=== PATIENT | female | born 1960 | race Caucasian/White ===

== ENCOUNTER 2016-05-11 06:16 | Inpatient (IN) ==
[2016-05-11] MEDS ORDERED: Lidocaine -MPF 4% 5 ML AMPUL ONE (06:54)
[2016-05-11] MEDS ORDERED: Ondansetron 4 MG/2 ML VIAL ONE (06:59)
[2016-05-11] MEDS ORDERED: *HR* Succinylcholine 200 MG/10 ML VIAL IVP ONE (06:59)
[2016-05-11] MEDS ORDERED: Dexamethasone 4 MG/ML VIAL ONE (06:59)
[2016-05-11] MEDS ORDERED: Lidocaine -MPF 2% 2 ML VIAL ONE (06:59)
[2016-05-11] MEDS ORDERED: *HR* Midazolam HCl 2 MG/2 ML VIAL ONE (07:00)
[2016-05-11] MEDS ORDERED: *HR* FentaNYL (PF) 100 MCG/2 ML VIAL ONE (07:00)
[2016-05-11] MEDS ORDERED: *HR* Propofol 200 MG/20 ML VIAL IVP ONE (07:00)
[2016-05-11] MEDS ORDERED: *HR* Phenylephrine 10 MG/ML VIAL ONE (07:03)
[2016-05-11] MEDS ORDERED: Albuterol 2.5 MG/3 ML NEBULIZER IH ONE (07:04)
[2016-05-11] MEDS ORDERED: Clindamycin 900 MG/50 ML 900 MG/50 ML IV.SOLN IVPB ONE (07:04)
[2016-05-11] MEDS ORDERED: Lidocaine 1% 20 ML MDV ID ONE (07:04)
[2016-05-11] MEDS ORDERED: Albuterol 2.5 MG/3 ML NEBULIZER ONE (07:09)
[2016-05-11] MEDS ORDERED: Ringers Solution, Lactated 1,000 ML IVC SCH ×2 (07:15→11:55)
--- NOTE | 2016-05-11 07:20 | History & Physical Report ---
Date of Encounter: 05/11/16 Time of Encounter: 07:19 24 Hour HP Update - Instructions Instructions: If the History and Physical is less than 30 days old and was completed prior to A.M. admission and or procedure and has NOT been updated on calendar day of procedure please complete this update prior to performing procedure. - Update Patient reports changes in Medical Condition: No Changes in assessment/condition: No Changes in Medication: No Preop tests/diagnostics Reviewed: Yes Pre-Op MRSA Screen: Negative Surgery Remains Indicated: Yes Consent for Planned Operative Procedure(s) Verified: Yes - Pre-Operative Checklist Preoperative Checklist Indicated: No Prophylactic Antibiotic Ordered: Yes Home Medications Include Beta Jerrod: No Beta Jerrod Taken Today (Day of Surgery): No Beta Jerrod Taken Yesterday (Day Prior to Surgery): No Is VTE Prophylaxis Indicated?: Yes
--- NOTE | 2016-05-11 07:24 | Anesthesia Evaluation PreOp ---
Date of Encounter: 05/11/16 Time of Encounter: 07:22 - Past History Planned Operation: Posterior Lumbar Interbody Fusion L4-5 Cardiac History: Hyperlipidemia, Arrhythmia Pulmonary History: Smoker (38 years), Asthma (O2 prn), COPD MEAT PUMPER History: Denies Any Significant HX Other Medical History: GERD, Other (bipolar d/o) Anesthesia History: No Prior Anesthetic Complications, Past Anesthesia Alcohol Use: none Drug use: none Medications and Allergies Albuterol Sulfate [Proair HFA] 180 mcg IH Q4HR 01/23/15 [History] Aspirin 81 mg PO DAILY 01/23/15 [History] Atorvastatin [Lipitor] 40 mg PO HS 01/23/15 [History] Budesonide/Formoterol 160/4.5 [Symbicort] 1 puff IH BID 01/23/15 [History] Calcium Carbonate/Vitamin D3 [Calcium 600 + D Tablet] 1 each PO BID 01/23/15 [ History] CarBAMazepine [Tegretol] 200 mg PO BID 01/23/15 [History] Cholecalciferol (Vitamin D3) [Vitamin D] 1,000 unit PO BID 01/23/15 [History] ClonazePAM [Klonopin] 1 mg PO BID 01/23/15 [History] Escitalopram [Lexapro] 20 mg PO DAILY 01/23/15 [History] Gabapentin [Neurontin] 600 mg PO BID 01/23/15 [History] Glucosamine Sulf/Chondroitin A [Glucosamine-Chondroitin Cap] 1 each PO BID 01/23 [History] Ipratropium/Albuterol Neb [Duoneb] 3 ml IH Q4HR PRN 01/23/15 [History] Lamotrigine [Lamictal] 150 mg PO BID 01/23/15 [History] Loratadine [Claritin] 10 mg PO DAILY 01/23/15 [History] Loxapine Succinate [Loxapine] 10 mg PO BID 01/23/15 [History] [place]-3S/Dha/Epa/Fish Oil [Fish Oil 1,200 mg Softgel] 1 each PO BID 01/23/15 [ History] Omeprazole [Prilosec] 40 mg PO DAILY 01/23/15 [History] Oxygen 2 l NS AD 01/23/15 [History] TraZODone 150 mg PO HS 01/23/15 [History] Allergies adhesive tape Adverse Reaction (Unverified 12/28/14 14:43) Hives cefazolin [From Anc] Adverse Reaction (Unverified 12/28/14 14:43) Hives NSAIDS (Non-Steroidal Anti-Inflamma Adverse Reaction (Unverified 12/28/14 14:43) Irritable Penicillins Adverse Reaction (Unverified 12/28/14 14:43) Hives - Meds/Allergy Pre-op Review Medications Reviewed: Yes Allergies Reviewed: Yes Beta Blockers on Current Med List: Yes If Beta Blockers taken, Date/Time (Last Dose taken): 05/11/2016 at 0430 Anesthesia Results - Labs Laboratory Tests 04/30/16 04/30/16 04/30/16 10:03 10:03 10:03 WBC 11.7 H Hgb 15.4 Hct 44.2 Plt Count 252 PT 12.5 H INR 1.2 APTT 34.6 Sodium 134 L Potassium 3.3 L BUN 4 L Creatinine 0.59 - Imaging EKG: report reviewed (04/30/2016 SR, borderline LAD) Additional studies: 09/14/2014 Stress Impression: Perfusion imaging was negative for ischemia or infarct. Pharmacologic ECG was negative for ischemia at the level of heart rate achieved. Patient had no chest pain with stress. Normal hemodynamic response. No arrhythmias noted with stress. Gated EF = >70%. The LV is not dilated. There is no evidence of TID. 06/05/2014 Echo Impressions: LVEF 60%. Normal left ventricular size and systolic function. There is evidence of mild diastolic dysfunction of the left ventricle. Normal left atrial size. Normal right atrial size. Normal right ventricular size and function. Mild mitral regurgitation. Estimated RVSP was 25 mmHg. No pulmonary hypertension. The IVC is not dilated. Anesthesia Exam Vital Signs/O2 Sat, Most Current Temp Pulse Resp BP Pulse Ox 98.8 F 67 18 130/73 96 05/11/16 07:06 05/11/16 07:06 05/11/16 07:06 05/11/16 07:06 05/11/16 07:06 Height: 5'1''/1.55 m Weight: 118 lbs/53.524 kg NPO (# of Hours): 8 Pain Scale: 0 Pain Scale Used: Numeric (1 - 10) - HEENT Pupil (Motor): EOMI Mallampati: II Teeth: Edentulous Denture Type: Upper: Complete, Lower: Complete Oral Opening: Greater than 3 - MEAT PUMPER LOC: Oriented MEAT PUMPER Motor: Normal RUE, Normal LUE, Normal RLE, Normal Face, Deficit LLE MEAT PUMPER Sensory: Normal: RUE, LUE, RLE, Face, Deficit: LLE - Cardiac Rhythm: Regular Murmur: None - Pulmonary Breath Sounds: bilateral Clear Respiratory Effort: Symmetrical Anesthesia Assess/Plan ASA Score: 3 Modified [place] Scale for Level of Consciousness: Cooperative, oriented, and tranquil Anesthetic Plan: General Monitoring Plan: Standard Monitors Recovery Plan: PACU
[2016-05-11] MEDS ORDERED: *HR* Remifentanil 1 MG VIAL IVP ONE (07:38)
[2016-05-11] MEDS ORDERED: EPHEDrine 50 MG/ML VIAL ONE (08:02)
[2016-05-11] MEDS ORDERED: Lacri-Lube 3.5 GM TUBE ONE (08:05)
[2016-05-11] MEDS ORDERED: Ondansetron 4 MG/2 ML VIAL IVP ONE (08:47)
[2016-05-11] MEDS ORDERED: *HR* Promethazine 25 MG/ML VIAL IVP PRN (08:47)
[2016-05-11] MEDS ORDERED: Dexamethasone 4 MG/ML VIAL IVP ONE (08:47)
[2016-05-11] MEDS ORDERED: *HR* Labetalol 100 MG/20 ML MDV IVP PRN (08:47)
--- NOTE | 2016-05-11 10:26 | Orthopedic Operative Note ---
Date of procedure: 05/11/16 Pre-op diagnosis: lumbar radiculopathy, lumbar disc heniation, s/p microdiscectomy Post-op diagnosis: same Operation/Findings: Posterior lumbar interbody fusion L4-L5: The patient successfully underwent general endotracheal anesthesia. The patient was given antibiotics prior to the start of the procedure. Compression boots and stockings were used for deep vein thrombosis prophylaxis. A Elliott catheter was placed. Leads for neuro monitoring were placed on the upper and lower extremities. This included the cranium. The neuro monitoring personnel confirmed there were satisfactory readings prior to the start of the procedure. The patient was turned prone on the Marcell table. The back was prepped and draped in the usual sterile fashion. An incision was was marked and centered over the involved L4-L5 levels in the mid line. The incision was deepened through the lumbar fascia. Bovie cautery and Ayala elevators were used to reflect the paraspinal musculature at the lateral extent of the L4 and L5 transverse processes of the involved levels. Vivi clamps were placed over the spinous processes. An intraoperative lateral fluoroscopy graft was obtained. A conversation was held between the surgeon and radiologist and both confirmed we had the correct operative levels. We then placed pedicle screws in standard fashion with the aid of fluoroscopy and anatomic landmarks. Briefly a starter awl was used. A gearshift was subsequently used to enter the instructor pilot hole via a transpedicular route into the vertebral body. The instructor pilot hole was tapped with an undersized instrument, and subsequently four 6.5 x 40 mm pedicle screws were placed bilaterally at the indicated L4 and L5 levels. The screws were tested with the aid of the neurologic monitoring staff via pedicle screw stimulation. All reading suggested there was no significant cortical wall breech. The screws were also evaluated fluoro- graphically and appeared to be in satisfactory position. We then turned our attention to the decompression portion of the procedure. We removed the supraspinous and interspinous ligaments and subsequently the insertion of the ligamentum flavum on the undersurface of the proximal L4 lamina was dislodged with a curette. We then removed the ligamentum flavum as well as undercut the L4-5 facets at this level to decompress the lateral recesses. We also performed a L4 laminectomy. After the decompression, which was over and above that which was required to place the interbody graft, the foramen and traversing roots at this L4-L5 level were found to be free and patent. We also took part of the left medial facet in order to aid in the decompression. We then protected the neural elements including the thecal sac and traversing nerve root on the left with a dural retractor. We made an annulotomy into the L4-L5 disc space and then removed entire disc material using Pituitary instruments. We trialed various size grafts after the endplates were prepared for graft insertion. A 10 x 26 enter body graft fit well within the L4-L5 disc space. We obtained some bone from the left posterior superior iliac spine through us a separate incision and combined with this with the bone which we had saved from the laminectomy portion of the procedure. This autograft bone was first placed in the anterior portion of the L4-L5 disc space and additional bone was placed within the interbody graft spacer. We then placed the interbody graft spacer obliquely across the disc space towards the midline while protecting the neural elements with a root retractor. When the graft was found to be in satisfactory position the copier repair technician was removed. We then copiously irrigated the wound. We then decorticated the L4 and L5 transverse processes as well as the L4-L5 facet joints of the involved levels to aid in the posterolateral fusion. We placed autograft bone in the lateral gutters over these regions. We then placed rods within the screw heads of the involved levels and first locked the distal screws and then subsequently locked the proximal screws. We then closed the wound in layers with 1 Vicryl for the fascia, 2-0 Vicryl. Subcutaneous tissue, and Dermabond was used for skin closure. Sterile dressings were placed over the wound. The patient was turned supine on a hospital bed and extubated. All sponge instruments and needle counts were correct at the end of the procedure. The patient tolerated the procedure well without complications. Anesthesia: GETA Surgeon: Oumar Oliveros Jr Estimated blood loss (cc): 100 Condition: stable Disposition: PACU
[2016-05-11] MEDS: *HR* HYDROmorphone (PF) 1 MG/ML SYRINGE IVP PRN ×4 (10:50→11:12)
[2016-05-11] MEDS ORDERED: NON-FORMULARY MEDICATION 1 EACH EACH (Oxygen [Oxygen] 2 L) NS SCH (11:55)
[2016-05-11] MEDS ORDERED: *HR* Morphine 2 MG/ML SYRINGE IVP PRN (11:55)
[2016-05-11] MEDS ORDERED: Naloxone 0.4 MG/ML INJ IVP PRN (11:55)
[2016-05-11] MEDS ORDERED: Ondansetron 4 MG/2 ML VIAL IVP PRN (11:55)
[2016-05-11] MEDS ORDERED: Ipratropium/Albuterol Neb 3 ML IH PRN (11:55)
[2016-05-11] MEDS ORDERED: Sennosides 8.6 MG TABLET PO PRN (11:55)
[2016-05-11] MEDS: *HR* Morphine 2 MG/ML SYRINGE IVP PRN (15:58)
[2016-05-11] MEDS: Simethicone 80 MG TAB.CHEW PO SCH ×3 (15:58→20:44)
[2016-05-11] MEDS: traZODone 50 MG TABLET PO SCH (20:43)
[2016-05-11] MEDS: *HR* OxyCODONE Immed Rel 5 MG TABLET PO PRN (20:44)
[2016-05-11] MEDS: carBAMazepine 200 MG TABLET PO SCH (20:45)
[2016-05-11] MEDS: tiZANidine 4 MG TABLET PO SCH (20:45)
[2016-05-11] MEDS: lamoTRIgine 100 MG TABLET PO SCH (20:45)
[2016-05-11] MEDS: clonazePAM 1 MG TABLET PO SCH (20:45)
[2016-05-11] MEDS: Clindamycin 600 MG/50 ML 600 MG/50 ML IV.SOLN IVPB SCH (20:46)
[2016-05-11] MEDS: (Loxapine Succinate [Loxapine] 10 MG) PO SCH (20:47)
[2016-05-11] MEDS: GLUCOSAMINE SULF PO SCH (20:47)
[2016-05-11] MEDS: CHONDROITIN A PO SCH (20:47)
[2016-05-11] MEDS: Budesonide/Formoterol 160/4.5 MDI IH SCH (21:30)
[2016-05-12] MEDS: *HR* Morphine 2 MG/ML SYRINGE IVP PRN (00:20)
[2016-05-12] MEDS: *HR* OxyCODONE Immed Rel 5 MG TABLET PO PRN ×3 (02:53→15:56)
[2016-05-12] MEDS: Clindamycin 600 MG/50 ML 600 MG/50 ML IV.SOLN IVPB SCH (04:10)
[2016-05-12 06:34] LABS: BUN/Creatinine Ratio 6 (6-26); Blood Urea Nitrogen 3 mg/dL (7-20); Calcium 8.8 mg/dL (8.6-10.8); Carbon Dioxide 26 mEq/L (19-29); Chloride 100 mEq/L (98-109); Glucose 101 mg/dL (70-99); Osmolality,Calculated 279 (280-300); Potassium 3.3 mEq/L (3.5-4.5); Sodium 136 mEq/L (136-145); eGFR For African Americans > 60 (> 60); eGFR For Non-African Americans > 60 (> 60)
[2016-05-12] MEDS: Budesonide/Formoterol 160/4.5 MDI IH SCH ×2 (08:18→20:17)
[2016-05-12] MEDS: Cholecalciferol (D-3) 1,000 UNIT TABLET PO SCH (09:35)
[2016-05-12] MEDS: Simethicone 80 MG TAB.CHEW PO SCH ×4 (09:35→20:31)
[2016-05-12] MEDS: Aspirin 81 MG TAB.CHEW PO SCH (09:35)
[2016-05-12] MEDS: clonazePAM 1 MG TABLET PO SCH ×2 (09:36→20:31)
[2016-05-12] MEDS: carBAMazepine 200 MG TABLET PO SCH ×2 (09:36→20:37)
[2016-05-12] MEDS: Loratadine 10 MG TABLET PO SCH (09:36)
[2016-05-12] MEDS: lamoTRIgine 100 MG TABLET PO SCH ×2 (09:36→20:38)
[2016-05-12] MEDS: CHONDROITIN A PO SCH ×2 (09:38→20:51)
[2016-05-12] MEDS: GLUCOSAMINE SULF PO SCH ×2 (09:38→20:51)
--- NOTE | 2016-05-12 11:10 | Spine Progress Note ---
Date of Encounter: 05/12/16 Time of Encounter: 11:07 Subjective Principal diagnosis: recuurent disc herniation, lumbar radiculopathy, s/p microdiscectomy Interval history: The patient is without complaints. AFVSS. Dressing clean, dry, and intact. Neurovascularly intact with regard to her bilateral lower extremities. Impression; stable. Mobilize, discharge planning, continue analgesics. Objective Vital signs: Vital Signs Temp Pulse Resp BP Pulse Ox 05/12/16 09:27 95/50 05/12/16 08:19 18 97 05/12/16 06:44 98.9 F 81 18 88/49 97 05/12/16 03:56 98.0 F 74 16 109/51 96 05/11/16 23:39 98.3 F 75 15 108/55 95 05/11/16 21:30 18 94 L 05/11/16 19:30 98.7 F 76 16 104/56 94 L 05/11/16 15:00 97.9 F 79 18 114/64 93 L 05/11/16 13:56 97.9 F 84 16 100/53 93 L 05/11/16 13:45 97.9 F 84 16 100/53 93 L 05/11/16 13:00 97.7 F 84 16 112/57 94 L 05/11/16 12:15 98.6 F 86 16 111/58 95 05/11/16 11:45 98.6 F 82 16 128/74 94 L 05/11/16 11:31 98.4 F 81 20 140/69 96 05/11/16 11:21 98.2 F 80 20 133/70 95 05/11/16 11:11 79 20 137/72 95 Intake and Output 05/11/16 05/12/16 05/12/16 23:59 07:59 15:59 Intake Total 240 / 240 700 / 700 Output Total 800 / 800 1500 / 1500 Balance -560 / -560 -800 / -800 Intake: IV Fluids 100 / 100 Cleocin 600 MG/50 ML 600 100 / 100 mg In 50 ml @ 50 mls/hr IVPB Q8H [facility] Rx#: [id number] Oral 240 / 240 600 / 600 Output: Catheter 800 / 800 1500 / 1500 - Labs CBC & BMP: 05/12/16 05:49 Labs: Abnormal lab results Potassium 3.3 mEq/L (3.5-4.5) L 05/12/16 05:49 BUN 3 mg/dL (7-20) L 05/12/16 05:49 Creatinine 0.47 mg/dL (0.57-1.11) L 05/12/16 05:49 Glucose 101 mg/dL (70-99) H 05/12/16 05:49 Calculated Osmolality 279 (280-300) L 05/12/16 05:49 Consult Discharge Plan - Plan Referrals: Julius Grossman DO [Partnered Physician] - 06/18/16 11:40 am Harper Hendrickson CNP [Primary Care Provider] -
[2016-05-12] MEDS: traZODone 50 MG TABLET PO SCH (20:40)
[2016-05-12] MEDS: tiZANidine 4 MG TABLET PO SCH (20:40)
[2016-05-12] MEDS: (Loxapine Succinate [Loxapine] 10 MG) PO SCH (20:51)
[2016-05-13] MEDS: Budesonide/Formoterol 160/4.5 MDI IH SCH ×2 (07:35→20:43)
[2016-05-13] MEDS: Aspirin 81 MG TAB.CHEW PO SCH (08:00)
[2016-05-13] MEDS: lamoTRIgine 100 MG TABLET PO SCH ×2 (08:00→22:42)
[2016-05-13] MEDS: clonazePAM 1 MG TABLET PO SCH ×2 (08:00→22:42)
[2016-05-13] MEDS: Cholecalciferol (D-3) 1,000 UNIT TABLET PO SCH (08:01)
[2016-05-13] MEDS: *HR* OxyCODONE Immed Rel 5 MG TABLET PO PRN ×2 (08:01→22:52)
[2016-05-13] MEDS: carBAMazepine 200 MG TABLET PO SCH ×2 (08:01→22:43)
[2016-05-13] MEDS: Loratadine 10 MG TABLET PO SCH (08:04)
[2016-05-13] MEDS: Simethicone 80 MG TAB.CHEW PO SCH ×4 (08:04→22:42)
[2016-05-13] MEDS: CHONDROITIN A PO SCH ×2 (08:04→22:37)
[2016-05-13] MEDS: GLUCOSAMINE SULF PO SCH ×2 (08:04→22:37)
--- NOTE | 2016-05-13 13:25 | Spine Progress Note ---
Date of Encounter: 05/13/16 Time of Encounter: 13:24 Subjective Principal diagnosis: recuurent disc herniation, lumbar radiculopathy, s/p microdiscectomy Interval history: The patient is without complaints. AFVSS. Incision is clean, dry, and intact. Neurovascularly intact with regard to her bilateral lower extremities. Impression; stable. Mobilize, discharge planning, continue analgesics. Objective Vital signs: Vital Signs Temp Pulse Resp BP Pulse Ox 05/13/16 12:30 80 77/46 90 L 05/13/16 10:49 99.5 F 74 16 89/51 95 05/13/16 08:00 98.8 F 90 20 88/40 05/13/16 07:38 16 87 L 05/13/16 06:48 101.3 F H 79 16 100/58 93 L 05/13/16 04:11 99.7 F H 82 14 95/48 92 L 05/13/16 00:56 99.8 F H 80 16 97/51 93 L 05/12/16 23:19 92/48 05/12/16 21:24 100.1 F H 86 17 103/58 92 L 05/12/16 21:09 112/53 05/12/16 20:17 14 96 05/12/16 15:37 99.6 F 81 16 101/63 95 Intake and Output 05/12/16 05/13/16 05/13/16 23:59 07:59 15:59 Output Total 600 / 600 1000 / 1000 Balance -600 / -600 -1000 / -1000 Output: Urine 600 / 600 1000 / 1000 - Labs CBC & BMP: 05/12/16 05:49 Labs: Abnormal lab results Potassium 3.3 mEq/L (3.5-4.5) L 05/12/16 05:49 BUN 3 mg/dL (7-20) L 05/12/16 05:49 Creatinine 0.47 mg/dL (0.57-1.11) L 05/12/16 05:49 Glucose 101 mg/dL (70-99) H 05/12/16 05:49 Calculated Osmolality 279 (280-300) L 05/12/16 05:49 Consult Discharge Plan - Plan Referrals: Laure Abrams, PAC [Physician Funeral Home Director] - 05/26/16 8:00 am Julius Grossman, DO [Partnered Physician] - 06/18/16 11:40 am aHrper Hendrickson CNP [Primary Care Provider] -
[2016-05-13] MEDS: (Loxapine Succinate [Loxapine] 10 MG) PO SCH (22:37)
[2016-05-13] MEDS: traZODone 50 MG TABLET PO SCH (22:42)
[2016-05-13] MEDS: tiZANidine 4 MG TABLET PO SCH (22:42)
[2016-05-14] MEDS: Budesonide/Formoterol 160/4.5 MDI IH SCH (08:32)
[2016-05-14] MEDS: GLUCOSAMINE SULF PO SCH (09:02)
[2016-05-14] MEDS: CHONDROITIN A PO SCH (09:02)
[2016-05-14] MEDS: Simethicone 80 MG TAB.CHEW PO SCH ×2 (09:02→13:53)
[2016-05-14] MEDS: Loratadine 10 MG TABLET PO SCH (09:02)
[2016-05-14] MEDS: Cholecalciferol (D-3) 1,000 UNIT TABLET PO SCH (09:03)
[2016-05-14] MEDS: Aspirin 81 MG TAB.CHEW PO SCH (09:08)
[2016-05-14] MEDS: lamoTRIgine 100 MG TABLET PO SCH (09:08)
[2016-05-14] MEDS: carBAMazepine 200 MG TABLET PO SCH (09:09)
[2016-05-14] MEDS: clonazePAM 1 MG TABLET PO SCH (09:09)
[2016-05-14 10:55] VITALS: BP 96/63
--- NOTE | 2016-05-14 11:53 | Discharge Summary ---
Date of Encounter: 05/14/16 Time of Encounter: 11:49 - Discharge Diagnosis (1) Recurrent herniation of lumbar disc Priority: Primary Status: Chronic (2) Lumbar radiculopathy Priority: Secondary Status: Chronic (3) Lumbar stenosis Priority: Secondary Status: Chronic (4) History of microdiscectomy Priority: Secondary Status: Chronic - Discharge Medications Prescriptions: OxyCODONE Immed Rel [Roxicodone 5 MG] 5 mg PO Q6HR PRN #60 tablet PRN Reason: Severe Pain Home Medications: Albuterol Sulfate [Albuterol Inhaler] 2 puff IH Q4HR PRN 01/23/15 [History] Aspirin 81 mg PO DAILY 01/23/15 [History] Atorvastatin [Lipitor] 40 mg PO HS 01/23/15 [History] Budesonide/Formoterol 160/4.5 [Symbicort] 1 puff IH BID 01/23/15 [History] Calcium Carbonate/Vitamin D3 [Calcium 600 + D Tablet] 1 each PO BID 01/23/15 [ History] CarBAMazepine [Tegretol] 200 mg PO BID 01/23/15 [History] Cholecalciferol (Vitamin D3) [Vitamin D] 1,000 unit PO BID 01/23/15 [History] ClonazePAM [Klonopin] 1 mg PO BID 01/23/15 [History] Escitalopram [Lexapro] 30 mg PO HS 01/23/15 [History] Gabapentin [Neurontin] 600 mg PO TID 01/23/15 [History] Glucosamine Sulf/Chondroitin A [Glucosamine-Chondroitin Cap] 1 each PO BID 01/23 [History] Ipratropium/Albuterol Neb [Duoneb] 3 ml IH Q4HR PRN 01/23/15 [History] Lamotrigine [Lamictal] 150 mg PO BID 01/23/15 [History] Loratadine [Claritin] 10 mg PO DAILY 01/23/15 [History] Loxapine Succinate [Loxapine] 10 mg PO HS 01/23/15 [History] [place]-3S/Dha/Epa/Fish Oil [Fish Oil 1,200 mg Softgel] 1 each PO BID 01/23/15 [ History] Omeprazole [PriLOSEC] 40 mg PO DAILY 01/23/15 [History] Oxygen 2 l NS AD 01/23/15 [History] Acetaminophen [Tylenol] 1,000 mg PO Q6HR PRN 05/11/16 [History] Atenolol [Tenormin] 25 mg PO DAILY 05/11/16 [History] Dicyclomine [Bentyl] 10 mg PO QID PRN 05/11/16 [History] Montelukast [Singulair] 10 mg PO DAILY 05/11/16 [History] Simethicone [Gas Relief] 125 mg PO QID 05/11/16 [History] Tizanidine HCl 4 mg PO HS 05/11/16 [History] Tramadol HCl [Ultram] 50 mg PO Q6H PRN 05/11/16 [History] Trazodone HCl 200 mg PO HS 05/11/16 [History] OxyCODONE Immed Rel [Roxicodone 5 MG] 5 mg PO Q6HR PRN #60 tablet 05/14/16 [Rx] Allergies/Adverse Reactions: Allergies adhesive tape Adverse Reaction (Verified 05/11/16 07:59) Hives cefazolin [From Anc] Adverse Reaction (Verified 05/11/16 07:59) Hives NSAIDS (Non-Steroidal Anti-Inflamma Adverse Reaction (Verified 05/11/16 07:59) Irritable Penicillins Adverse Reaction (Verified 05/11/16 07:59) Hives - Impressions ITS Impressions Lumbar Spine X-Ray 05/11/16 08:22 IMPRESSION: Status post posterior screw and monik fusion at L4-5. No acute or unexpected finding. D/ / 05/11/2016 11:46:19 [facility] Provider: Summer Barlow MD Date of admission: 05/11/16 11:36 Primary care physician: Harper Hendrickson CNP Consults: 05/11/16 11:55 Consult to Occupational Therapy [CONS] Routine Comment: Evaluate, develop and implement POC Consult to Physical Therapy [CONS] Routine Comment: Evaluate, develop and implement POC Consult to Spine Navigator [CONS] [CONS] Routine - Patient Status Disposition: Home, Self-Care Condition: Good Functional capacity at discharge: uses cane/walker Overall status at discharge: patient is progressing back to baseline - Discharge Instructions Follow Up With: Laure Abrams PAC [Physician Research Nutritionist] - 05/26/16 8:00 am Julius Grossman DO [Partnered Physician] - 06/18/16 11:40 am Harper Hendrickson, COLD ROLL OPERATOR [Primary Care Provider] - - Diet and Activity Activity: as per physical therapy Diet: advance to your usual diet - Hospital Course Hospital course: Ms. Harrell is a 56 year old female who underwent a posterior lumbar interbody fusion. She had an uneventful postoperative course. She progressed from iv to oral analgesics. She remained neurovascularly intact with a well approximated incision. She had satsifactory radiographic studies. Discharged with two week follow up with Dr Oliveros. - Time Spent with Patient Total time spent providing and/or coordinating discharge services: - VTE Documentation of Mechanical Device: Intermittent pneumatic compression device
== END 2016-05-14 14:45 | disposition home or self-care (01) | DRG 460 ==
LOC: SAMDAY 06:16 → 3NENU 11:36
PROVIDERS: ADMIT Orthopaedic Surgery Orthopaedic Surgery of the Spine; ATTEND Orthopaedic Surgery Orthopaedic Surgery of the Spine

== ENCOUNTER 2019-01-20 13:32 | Inpatient (IN) ==
[2019-01-20] MEDS ORDERED: Acetaminophen IV 1,000 MG/100 ML INFUS..BTL IVPB ONE (13:54)
[2019-01-20] MEDS ORDERED: Famotidine 20 MG/2 ML VIAL IVP ONE (13:54)
[2019-01-20] MEDS ORDERED: Pregabalin 75 MG CAPSULE PO ONE (13:55)
[2019-01-20] MEDS ORDERED: Clindamycin 900 MG/50 ML 900 MG/50 ML IV.SOLN IVPB ONE (13:56)
[2019-01-20] MEDS ORDERED: Albuterol 2.5 MG/3 ML NEBULIZER IH PRN (13:56)
[2019-01-20] MEDS ORDERED: Ringers Solution, Lactated 1,000 ML IVC SCH (14:00)
[2019-01-20] MEDS ORDERED: Ondansetron 4 MG/2 ML VIAL IVP ONE (14:45)
[2019-01-20] MEDS ORDERED: *HR* OxyCODONE Immed Rel 5 MG TABLET PO PRN (14:45)
[2019-01-20] MEDS ORDERED: Ropivacaine/PF 0.5% 30 ML VIAL ONE (15:37)
[2019-01-20] MEDS ORDERED: Ethanol\\Acetic Acid\\Na Ace\\Ben 1,000 ML IRRIG.SOLN IR ONE ×2 (16:23→16:27)
[2019-01-20] MEDS ORDERED: Dexamethasone 4 MG/ML VIAL ONE (16:54)
[2019-01-20] MEDS ORDERED: EPHEDrine 50 MG/ML VIAL ONE (16:54)
[2019-01-20] MEDS ORDERED: Lidocaine -MPF 2% 2 ML VIAL ONE (16:54)
[2019-01-20] MEDS ORDERED: *HR* Propofol 200 MG/20 ML VIAL IVP ONE (16:54)
[2019-01-20] MEDS ORDERED: *HR* Succinylcholine 200 MG/10 ML VIAL IVP ONE (16:54)
[2019-01-20] MEDS ORDERED: Ondansetron 4 MG/2 ML VIAL ONE (16:54)
[2019-01-20] MEDS ORDERED: *HR* FentaNYL (PF) 100 MCG/2 ML VIAL ONE (16:54)
[2019-01-20] MEDS ORDERED: *HR* Midazolam HCl 2 MG/2 ML VIAL ONE (16:54)
[2019-01-20] MEDS ORDERED: *HR* PHENYLEPHRINE 1,000 MCG/10 ML SYRINGE IVP ONE (16:55)
[2019-01-20] MEDS: *HR* HYDROmorphone (PF) 1 MG/ML SYRINGE IVP PRN ×2 (17:51→17:57)
[2019-01-20] MEDS ORDERED: *HR* Enoxaparin 30 MG/0.3 ML SYRINGE SQ SCH (18:00)
[2019-01-20 18:10] LABS: Hematocrit 39.6 % (35.3-44.9); Hemoglobin 14.3 g/dL (11.5-15.4)
[2019-01-20] MEDS ORDERED: MOM Conc 10 ML UD.LIQ PO PRN (18:48)
[2019-01-20] MEDS ORDERED: Ipratropium/Albuterol Neb 3 ML IH PRN (18:48)
[2019-01-20] MEDS ORDERED: Temazepam 15 MG CAPSULE PO PRN (18:48)
[2019-01-20] MEDS ORDERED: Ondansetron 4 MG/2 ML VIAL IVP PRN (18:48)
[2019-01-20] MEDS ORDERED: tiZANidine 4 MG TABLET PO PRN (18:48)
[2019-01-20] MEDS ORDERED: *HR* OxyCODONE/APAP 5/325 TABLET PO PRN (18:48)
[2019-01-20] MEDS ORDERED: Sennosides 8.6 MG TABLET PO PRN (18:48)
[2019-01-20] MEDS ORDERED: Clindamycin 900 MG/50 ML 900 MG/50 ML IV.SOLN IVPB SCH (18:48)
[2019-01-20] MEDS ORDERED: traZODone 50 MG TABLET PO PRN (18:48)
[2019-01-20] MEDS ORDERED: traMADol 50 MG TABLET PO PRN (18:48)
[2019-01-20] MEDS ORDERED: Naloxone 0.4 MG/ML INJ IVP PRN (18:48)
[2019-01-20] MEDS ORDERED: clonazePAM 0.5 MG TABLET PO PRN (18:48)
[2019-01-20] MEDS: Budesonide/Formoterol 160/4.5 1 PUFF INH IH SCH (20:21)
[2019-01-20] MEDS: carBAMazepine 200 MG TABLET PO SCH (21:30)
[2019-01-20] MEDS: Gabapentin 300 MG CAPSULE PO SCH (21:31)
[2019-01-20] MEDS: lamoTRIgine 100 MG TABLET PO SCH (21:31)
[2019-01-20] MEDS: Clindamycin 900 MG/50 ML 900 MG/50 ML IV.SOLN IVPB SCH (23:29)
[2019-01-21] MEDS: Ringers Solution, Lactated 1,000 ML IVC SCH ×2 (01:26→04:33)
[2019-01-21] MEDS: *HR* OxyCODONE Immed Rel 5 MG TABLET PO PRN ×2 (04:32→11:12)
[2019-01-21 05:19] LABS: Hemoglobin 13.4 g/dL (11.5-15.4)
[2019-01-21 05:33] LABS: BUN/Creatinine Ratio 17 (6-26); Blood Urea Nitrogen 7 mg/dL (6-20); Calcium 8.5 mg/dL (8.6-10.3); Carbon Dioxide 24 mEq/L (23-29); Chloride 98 mEq/L (98-107); Glucose 172 mg/dL (70-105); Osmolality,Calculated 270 (280-300); Potassium 3.6 mEq/L (3.5-5.1); Sodium 129 mEq/L (136-145); eGFR For African Americans > 60 (> 60); eGFR For Non-African Americans > 60 (> 60)
[2019-01-21] MEDS ORDERED: *HR* Enoxaparin 30 MG/0.3 ML SYRINGE SQ SCH (06:00)
[2019-01-21 07:50] VITALS: BP 136/68
[2019-01-21] MEDS: Clindamycin 900 MG/50 ML 900 MG/50 ML IV.SOLN IVPB SCH (07:51)
[2019-01-21] MEDS: Gabapentin 300 MG CAPSULE PO SCH (07:51)
[2019-01-21] MEDS: carBAMazepine 200 MG TABLET PO SCH (07:51)
[2019-01-21] MEDS: lamoTRIgine 100 MG TABLET PO SCH (07:51)
[2019-01-21] MEDS: Budesonide/Formoterol 160/4.5 1 PUFF INH IH SCH (07:57)
[2019-01-21] MEDS ORDERED: Venlafaxine XR (24 HR) 75 MG CAP.ER.24H PO SCH (09:00)
[2019-01-21] MEDS ORDERED: Aspirin 81 MG TAB.CHEW PO SCH (09:00)
[2019-01-21] MEDS ORDERED: Venlafaxine XR (24 HR) 150 MG CAP.ER.24H PO SCH (09:00)
[2019-01-21] MEDS ORDERED: Tiotropium 18 MCG inhalation IH SCH (10:00)
== END 2019-01-21 12:59 | disposition home health service (06) | DRG 483 ==
LOC: SAMDAY 13:32 → 3NENU 18:48
PROVIDERS: ADMIT Orthopaedic Surgery; ATTEND Orthopaedic Surgery